=== PATIENT | female | born 1935 | race Caucasian/White ===

== ENCOUNTER → 2016-06-07 | Outpatient (REF) ==
[~2016-06-07] MED LIST: ALEVE 220MG220 MG PO; ASPI325T6 PO; ASPIRIN E.C. 8181 MG PO; B-12 100 MCG PO; B-1250 MCG PO; CIPRO 250MG TA250 MG PO; CIPRO 500MG TA500 MG PO; CRESTOR5 MG PO; DRISTAN 12-HOUR15 ML NS; FISH OIL SUPER1 SGL PO; FLEXERIL 1010 MG/TAB PO; FLONASE NASAL S16 GM NS; FOLIC ACID 11 MG/TA1 PO; GLUCOPHAGE500 MG/TAB PO; HEPARIN 50500 U/5 ML IV; HUMULIN 70/3100 U/M1 SQ; LEVAQUIN 5500 MG/TA1 PO; LIPITOR 40MG TA40 MG PO; MAGNESIUM200 MG PO; METAMUCIL3.4 GM/DOS PO; MICARDIS HCT 121 TAB PO; MICARDIS HCT 251 TAB PO; NEXIUM 40MG40 MG PO; NORCO 325 MG-7.1 TAB PO; NORVASC 5MG5 MG/TAB PO; NOVOLOG 100U100 U/M1 SC; NOVOLOG FLEX100 U/ML SQ; NOVOLOG MIX 70/10 ML SQ; NOVOLOG MIX 70/33 ML SC; NOVOLOG MIX 70/33 ML SQ; NS INT FLUSH 1010 ML IV; PLAVIX 75MG TAB75 MG PO; PRAVACHOL 40MG40 MG PO; PRIL40 PO; ROCEPHIN 2GM VIAL21 IV; ROXICODONE 55 MG/TAB PO; SENOKOT S 50 MG1 TAB PO; TOPROL XL 50MG50 MG PO; VITAMIN B-150 MG PO; VITAMIN D 1001000 IU PO; ZANTAC 150MG T150 MG PO; ZYRTEC 10MG10 MG PO; ZYRTEC-D 5 MG-11 TER PO
== END ==
LOC: ZAIV 05-31 06:20
DX: Z09 Encounter for follow-up examination after completed treatment for conditions other than malignant neoplasm (principal)

== ENCOUNTER → 2016-06-14 | Outpatient (REF) ==
[2016-06-14 18:53] LABS: BASO # 0.1 (0.0-0.2); BASO % 0.8 % (0.0-2.0); EOS # 0.3 (0.0-0.7); EOS % 2.7 % (0-4.0); GRAN # 5.3 (1.4-6.5); HEMATOCRIT 32.5 % (37.0-47.0); HEMOGLOBIN 10.4 g/dl (12.5-16.0); LYMPH # 2.7 (1.2-3.4); LYMPH % 28.8 % (20.0-51.0); MEAN CELL VOLUME 92 fl (80.0-100.0); MEAN CORPUSCULAR HEMOGLOBIN 30 pg (27.0-31.0); MEAN CORPUSCULAR HGB CONC 32 g/dl (33.0-37.0); MEAN PLATELET VOLUME 10.3 fl (7.4-10.4); MONO % 10.4 % (1.7-9.3); PLATELET COUNT 345 K/mm3 (130-400); RED BLOOD COUNT 3.52 M/mm3 (4.10-5.30); REDCELL DISTRIBUTION WIDTH-CV 14.3 % (11.5-14.5); WHITE BLOOD COUNT 9.3 K/mm3 (4.8-10.8)
[2016-06-14 19:23] LABS: ERYTHROCYTE SEDIMENTATION RATE 35 mm/hr (0-30)
[2016-06-14 20:49] LABS: ALBUMIN 3.4 gm/dL (3.5-5.0); BILIRUBIN,TOTAL 0.4 mg/dL (0.0-1.0); C-REACTIVE PROTEIN 0.9 mg/dL (0.0-0.9); CALCIUM 9.5 mg/dL (8.4-10.2); CREATININE, serum 0.71 mg/dL (0.52-1.25); TOTAL PROTEIN 6.5 gm/dL (6.4-8.2)
== END ==
LOC: ZCOL.LAB 18:48
PROVIDERS: Internal Medicine
DX: Z01.89 Encounter for other specified special examinations (principal)

== ENCOUNTER 2016-06-22 12:23 | Outpatient (CLI) | payer MEDICARE, BC, OTHER ==
[2016-06-22 12:55] LABS: BASO # 0.1 (0.0-0.2); BASO % 0.9 % (0.0-2.0); EOS # 0.2 (0.0-0.7); EOS % 1.8 % (0-4.0); GRAN # 6.1 (1.4-6.5); GRAN % 64.9 % (42.2-75.2); LYMPH # 2.1 (1.2-3.4); LYMPH % 22.9 % (20.0-51.0); MEAN CELL VOLUME 93 fl (80.0-100.0); MEAN CORPUSCULAR HGB CONC 32 g/dl (33.0-37.0); MEAN PLATELET VOLUME 10.3 fl (7.4-10.4); MONO # 0.9 (0.1-0.6); MONO % 9.1 % (1.7-9.3); PLATELET COUNT 317 K/mm3 (130-400); RED BLOOD COUNT 3.65 M/mm3 (4.10-5.30); REDCELL DISTRIBUTION WIDTH-CV 14.6 % (11.5-14.5); WHITE BLOOD COUNT 9.3 K/mm3 (4.8-10.8)
[2016-06-22 12:56] LABS: HEMATOCRIT 33.8 % (37.0-47.0); HEMOGLOBIN 10.7 g/dl (12.5-16.0); MEAN CORPUSCULAR HEMOGLOBIN 29 pg (27.0-31.0)
[2016-06-22 12:59] VITALS: BP 126/45; BP 158/55; PULSE 67; PULSE 77; TEMP 97.9; TEMP 98.2
[2016-06-22 13:19] LABS: ADJUSTED CALCIUM 9.8 mg/dL (8.4-10.2); ALBUMIN 3.7 gm/dL (3.5-5.0); BILIRUBIN,TOTAL 0.7 mg/dL (0.0-1.0); C-REACTIVE PROTEIN 0.9 mg/dL (0.0-0.9); CALCIUM 9.6 mg/dL (8.4-10.2); CREATININE, serum 0.67 mg/dL (0.52-1.25); POTASSIUM 4.2 mmol/L (3.4-5.0); TOTAL PROTEIN 7.1 gm/dL (6.4-8.2)
[2016-06-22 13:25] LABS: ERYTHROCYTE SEDIMENTATION RATE 24 mm/hr (0-30)
== END 2016-06-22 13:00 | disposition home or self-care (01) ==
LOC: EUO 12:23
PROVIDERS: Internal Medicine Infectious Disease
DX: M19.90 Unspecified osteoarthritis, unspecified site (principal); Z45.2 Encounter for adjustment and management of vascular access device

== ENCOUNTER → 2017-04-18 | Outpatient (CLI) | payer MEDICARE, BC, OTHER | LOC: COL.VAS 14:00 | DX: I08.3 Combined rheumatic disorders of mitral, aortic and tricuspid valves (principal) ==

== ENCOUNTER → 2017-05-07 | Outpatient (CLI) | payer MEDICARE, BC, OTHER | LOC: COL.VAS 14:42 | DX: I74.3 Embolism and thrombosis of arteries of the lower extremities (principal); Z95.820 Peripheral vascular angioplasty status with implants and grafts ==

== ENCOUNTER → 2017-07-31 | Outpatient (CLI) | payer MEDICARE, BC, OTHER | LOC: COL.RAD 12:31 | DX: I83.811 Varicose veins of right lower extremity with pain (principal); I77.77 Dissection of artery of lower extremity; I77.1 Stricture of artery; M25.561 Pain in right knee; Z95.820 Peripheral vascular angioplasty status with implants and grafts; Z96.651 Presence of right artificial knee joint | CPT/HCPCS: Q9967 ==

== ENCOUNTER 2017-09-18 22:22 | Emergency (ER) | payer MEDICARE, BC, OTHER ==
[~2017-09-18] VITALS: Ht 157.5 cm; Wt 72.7 kg
[2017-09-18 22:26] VITALS: TEMP 98.7
[2017-09-19 00:21] VITALS: BP 165/83; PULSE 67
== END 2017-09-19 00:21 | disposition home or self-care (01) ==
LOC: COL.ER 22:22
DX: I83.92 Asymptomatic varicose veins of left lower extremity (principal); I10 Essential (primary) hypertension; E11.51 Type 2 diabetes mellitus with diabetic peripheral angiopathy without gangrene; E78.5 Hyperlipidemia, unspecified; Z79.4 Long term (current) use of insulin; Z79.02 Long term (current) use of antithrombotics/antiplatelets; Z79.82 Long term (current) use of aspirin; Z79.51 Long term (current) use of inhaled steroids

== ENCOUNTER 2018-01-16 01:29 | Emergency (ER) | payer MEDICARE, BC, OTHER ==
[~2018-01-16] VITALS: Ht 157.5 cm; Wt 70.5 kg
[2018-01-16 01:31] VITALS: TEMP 99
[2018-01-16 02:57] VITALS: BP 138/72; PULSE 59
== END 2018-01-16 02:57 | disposition home or self-care (01) ==
LOC: COL.ER 01:29
DX: I83.92 Asymptomatic varicose veins of left lower extremity (principal); E11.51 Type 2 diabetes mellitus with diabetic peripheral angiopathy without gangrene; I10 Essential (primary) hypertension; E78.5 Hyperlipidemia, unspecified; Z90.49 Acquired absence of other specified parts of digestive tract; Z90.710 Acquired absence of both cervix and uterus; Z79.82 Long term (current) use of aspirin; Z79.02 Long term (current) use of antithrombotics/antiplatelets; Z98.890 Other specified postprocedural states; Z79.4 Long term (current) use of insulin

== ENCOUNTER → 2018-04-15 | Outpatient (CLI) | payer MEDICARE, BC, OTHER ==
[2018-04-16 02:21] LABS: URINE MICROALBUMIN 48.6 mg/dL (0.0-1.7)
== END ==
LOC: COL.RAD 15:34
PROVIDERS: Internal Medicine
DX: E11.59 Type 2 diabetes mellitus with other circulatory complications (principal); G31.9 Degenerative disease of nervous system, unspecified; I67.82 Cerebral ischemia; S00.83XA Contusion of other part of head, initial encounter; S09.90XA Unspecified injury of head, initial encounter

== ENCOUNTER → 2018-08-06 | Outpatient (CLI) | payer MEDICARE, BC, OTHER | LOC: COL.VAS 12:11 | DX: I08.3 Combined rheumatic disorders of mitral, aortic and tricuspid valves (principal); I27.20 Pulmonary hypertension, unspecified ==

== ENCOUNTER → 2019-06-24 | Outpatient (CLI) | payer MEDICARE, BC, OTHER | LOC: COL.VAS 12:26 | DX: I35.0 Nonrheumatic aortic (valve) stenosis (principal) ==

== ENCOUNTER → 2020-01-06 | Outpatient (CLI) | payer MEDICARE, BC, OTHER | LOC: COL.VAS 14:21 | DX: J90 Pleural effusion, not elsewhere classified (principal); I08.0 Rheumatic disorders of both mitral and aortic valves ==